=== PATIENT | female | born 1965 | race Caucasian/White ===

== ENCOUNTER → 2016-12-05 | Outpatient (CLI) | payer BC ==
--- NOTE | 2016-12-06 09:30 | Diagnostic Imaging Report ---
INDICATION: Screening. COMPARISON: September 2014. The current digital study was evaluated with a Computer Aided Detection (CAD). FINDINGS: There is heterogeneous dense fibroglandular pattern. No masses have developed. There are no clustered calcifications. There is no architectural distortion. IMPRESSION: Stable bilateral mammogram. Routine followup recommended. ACR BI-RADS Category 2: Benign findings. Result letter will be mailed to the patient. Note: At least 10% of breast cancer is not imaged by mammography. Dictated by: Dictated on workstation # [id number]
== END ==
LOC: RAD 09:56 → EDUNIT# 10:00
PROVIDERS: ATTEND Family Medicine
DX: Z12.31 Encounter for screening mammogram for malignant neoplasm of breast (principal)

== ENCOUNTER 2017-01-02 06:57 | Day surgery (SDC) | payer BC ==
[~2017-01-02] VITALS: Ht 170.2 cm; Wt 94.5 kg
[~2017-01-02 06:57] MED LIST: LACTATED RINGERS 1,000 ML IV SCH; LEVO200T6 PO; LOSA1TAB70 PO; METO-274 PO; SODIUM CHLORIDE FLUSH 3 ML SYR IV PRN
[2017-01-02 07:01] VITALS: BP 165/101
[2017-01-02] MEDS ORDERED: PROPOFOL 20 ML IV ONE (08:45)
[2017-01-02] MEDS ORDERED: ALFENTANIL 500 MCG/ML (ALFENTA) 5 ML AMP IV ONE (08:45)
[2017-01-02] MEDS ORDERED: MIDAZOLAM 2 MG/2 ML (VERSED) VIAL ONE (08:45)
[2017-01-02 09:25] VITALS: BP 126/88
[2017-01-02 09:44] VITALS: BP 129/98
--- NOTE | 2017-01-02 10:50 | OPERATIVE REPORT ---
DATE OF OPERATION: 01/02/2017 PRE-OPERATIVE DIAGNOSIS: Colon screening POST-OPERATIVE DIAGNOSIS: Distal ascending colon polyp OPERATIVE PROCEDURE: Total colonoscopy and forceps polypectomy SURGEON: Sher Layton MD ANESTHESIA: IV conscious sedation, Monitored Anesthesia Services POSITION: Left lateral decubitus FINDINGS: 1. Good colon prep. 2. Tiny sessile distal ascending colon polyp. 3. A few diverticula of the sigmoid and descending colon. 4. The remainder of the mucosa appeared normal. OPERATIVE NOTE: Following satisfactory induction of analgesia, a digital rectal exam was performed. This revealed no rectal mass. The sphincter tone was normal. Next the colonoscope was introduced per rectum and advanced under CO2 inflation and direct vision to the cecum. The cecum was identified by convergence of teniae, ileocecal valve, and palpation of the right lower quadrant. The above findings were noted. C[employer] photographs were obtained. The polyp was removed using cold biopsy forceps and submitted to pathology. Good hemostasis was noted at the polypectomy site. The above areas were again carefully inspected as the scope was slowly withdrawn. Retroflexed view of the rectum was normal. Excess CO2 was evacuated and the scope removed. The patient tolerated the procedure well and transferred to recovery in stable condition. RECOMMENDATIONS: Will depend on pathology results. If this is an adenomatous polyp the patient will require colonoscopy in 5 years.
== END 2017-01-02 09:53 | disposition home or self-care (01) ==
LOC: ASC 06:57
PROVIDERS: ATTEND Surgery
DX: Z12.11 Encounter for screening for malignant neoplasm of colon (principal); D12.2 Benign neoplasm of ascending colon; Z80.0 Family history of malignant neoplasm of digestive organs; K57.30 Diverticulosis of large intestine without perforation or abscess without bleeding; I10 Essential (primary) hypertension; E03.9 Hypothyroidism, unspecified
CPT/HCPCS: 36415; 45380; 84132; J2250; J7120